=== PATIENT | female | born 1980 | race Caucasian/White ===

== ENCOUNTER 2018-01-20 12:57 | Emergency (ER) | payer MEDICAID, OTHER ==
[~2018-01-20] VITALS: Ht 172.7 cm; Wt 130.0 kg
[~2018-01-20 12:57] MED LIST: HYDR-4383 PO; HYDR12.5 PO; HYDR25TA4 PO
[2018-01-20 13:08] VITALS: BP 129/84
[2018-01-20] MEDS ORDERED: HYDROchlorothiazide 25mg tablet PO ONE (13:55)
[2018-01-20] MEDS ORDERED: HYDR25TA4 PO (13:55)
== END 2018-01-20 14:26 | disposition home or self-care (01) ==
LOC: ER 12:58
DX: I10 Essential (primary) hypertension (principal); M79.7 Fibromyalgia; Z98.51 Tubal ligation status; Z76.0 Encounter for issue of repeat prescription
CPT/HCPCS: 99283

== ENCOUNTER 2018-03-22 11:42 | Emergency (ER) | payer MEDICAID, OTHER ==
[~2018-03-22] VITALS: Ht 175.3 cm; Wt 125.0 kg
[2018-03-22 11:59] VITALS: BP 127/82
[2018-03-22] MEDS ORDERED: HYDR25TA4 PO (12:15)
== END 2018-03-22 13:01 | disposition home or self-care (01) ==
LOC: ER 11:42
DX: I10 Essential (primary) hypertension (principal); R60.0 Localized edema; F17.200 Nicotine dependence, unspecified, uncomplicated; Z76.0 Encounter for issue of repeat prescription; Z79.899 Other long term (current) drug therapy; Z98.51 Tubal ligation status
CPT/HCPCS: 99283

== ENCOUNTER 2018-07-26 23:41 | Emergency (ER) | payer MEDICAID ==
[~2018-07-26] VITALS: Ht 172.7 cm; Wt 98.2 kg
[2018-07-26 23:50] VITALS: BP 142/98
[2018-07-27] MEDS ORDERED: HYDR25TA4 PO (00:46)
[2018-07-27] MEDS ORDERED: HYDROchlorothiazide 25mg tablet PO ONE (01:05)
== END 2018-07-27 01:04 | disposition home or self-care (01) ==
LOC: ER 23:43
DX: I10 Essential (primary) hypertension (principal); Z98.51 Tubal ligation status; Z79.899 Other long term (current) drug therapy; Z76.0 Encounter for issue of repeat prescription
CPT/HCPCS: 99283

== ENCOUNTER 2018-09-06 17:55 | Emergency (ER) | payer MEDICAID ==
[~2018-09-06] VITALS: Ht 172.7 cm; Wt 106.8 kg
--- NOTE | 2018-09-06 19:29 | NUR ---
PATIENT HERE FOR REFILL ON HER HCTZ 25 MG WHICH WAS LAST TAKENA WEEK AGO. PATIENT IS ON WAITING LIST FOR [facility] FOR "NEW DOCTOR". PATIENT STATES THAT SHE LAST HAD A REGULAR MD IN [place] 2 YEARS AGO. PATIENT STATES THAT AN ADDRESS CHANGE CAUSED HER TO LOOSE HER MEDICAL FOR A PERIOD OF TIME. PATIENT HAS BEEN COMING TO [facility] ER FOR PRESCRIPTION FOR HCTZ SINCE 2016
--- NOTE | 2018-09-06 19:47 | NUR ---
PATIENT NOW REQUESTING TAXI TO RETURN HER TO HER WORKSITE AT [employer] AT THE CORNER OF [address]
[2018-09-06] MEDS ORDERED: HYDR25TA4 PO (20:45)
[2018-09-06] MEDS ORDERED: HYDROchlorothiazide 25mg tablet PO ONE (20:50)
[2018-09-06 20:51] VITALS: BP 152/102
--- NOTE | 2018-09-06 20:54 | NUR ---
PATIENT PROVIDED LIST OF DOCTORS IN THE ARE[facility] INFORMATION
--- NOTE | 2018-09-06 21:13 | NUR ---
SEE RECENT VITALS FOR DEPART
== END 2018-09-06 21:14 | disposition home or self-care (01) ==
LOC: ER 17:56
DX: R60.0 Localized edema (principal); Z76.0 Encounter for issue of repeat prescription; I10 Essential (primary) hypertension; Z98.51 Tubal ligation status; Z79.899 Other long term (current) drug therapy
CPT/HCPCS: 99283

== ENCOUNTER 2019-02-01 20:03 | Emergency (ER) | payer MEDICAID ==
[~2019-02-01] VITALS: Ht 175.3 cm; Wt 123.0 kg
--- NOTE | 2019-02-01 21:38 | NUR ---
BACK FROM CT SCAN
[2019-02-01] MEDS ORDERED: PRED20TA PO (21:52)
[2019-02-01 22:33] VITALS: BP 136/78
== END 2019-02-01 22:15 | disposition home or self-care (01) ==
LOC: ER 20:03
DX: S83.8X1A Sprain of other specified parts of right knee, initial encounter (principal); L25.9 Unspecified contact dermatitis, unspecified cause; I10 Essential (primary) hypertension; Z98.51 Tubal ligation status; Z79.899 Other long term (current) drug therapy; W18.40XA Slipping, tripping and stumbling without falling, unspecified, initial encounter; Y93.89 Activity, other specified; Y92.89 Other specified places as the place of occurrence of the external cause; Y99.8 Other external cause status
CPT/HCPCS: 73564; 99283

== ENCOUNTER 2019-11-15 23:10 | Emergency (ER) | payer MEDICAID, OTHER ==
[~2019-11-15] VITALS: Ht 172.7 cm; Wt 113.6 kg
[2019-11-15 23:16] VITALS: BP 140/87
[2019-11-15] MEDS ORDERED: HYDR50TA3 PO (23:41)
== END 2019-11-15 23:48 | disposition home or self-care (01) ==
LOC: ER 23:11
DX: I10 Essential (primary) hypertension (principal); Z76.0 Encounter for issue of repeat prescription; Z98.51 Tubal ligation status; Z79.899 Other long term (current) drug therapy
CPT/HCPCS: 99281

== ENCOUNTER 2019-12-07 15:03 | Emergency (ER) | payer MEDICAID, OTHER ==
[~2019-12-07] VITALS: Ht 175.3 cm; Wt 113.6 kg
[~2019-12-07 15:03] MED LIST changes: +HYDR50TA3 PO
[2019-12-07 16:40] VITALS: BP 145/95
== END 2019-12-07 16:47 | disposition home or self-care (01) ==
LOC: ER 15:04
DX: M25.531 Pain in right wrist (principal); M79.672 Pain in left foot; I10 Essential (primary) hypertension; Z98.51 Tubal ligation status; Z79.899 Other long term (current) drug therapy; W19.XXXA Unspecified fall, initial encounter; Y93.89 Activity, other specified; Y92.89 Other specified places as the place of occurrence of the external cause; Y99.8 Other external cause status
CPT/HCPCS: 29125; 29515; 73110; 73630; 99284

== ENCOUNTER 2020-03-30 23:38 | Emergency (ER) | payer MEDICAID ==
[~2020-03-30] VITALS: Ht 175.3 cm; Wt 111.4 kg
[2020-03-30 23:53] VITALS: BP 139/97
== END 2020-03-31 01:59 | disposition left against medical advice (07) ==
LOC: ER 23:38
DX: M25.572 Pain in left ankle and joints of left foot (principal); Z53.21 Procedure and treatment not carried out due to patient leaving prior to being seen by health care provider

== ENCOUNTER 2020-06-15 22:35 | Emergency (ER) | payer MEDICAID, OTHER ==
[~2020-06-15] VITALS: Ht 175.3 cm; Wt 113.6 kg
[~2020-06-15 22:35] MED LIST changes: -HYDR50TA3 PO; +HYDR50TA4 PO
--- NOTE | 2020-06-16 00:12 | NUR ---
Patient presents to ED for leg swelling and prescription refill of HCTZ. Patient reports being out of medication for a week. No other complaints at this time
[2020-06-16] MEDS ORDERED: HYDROchlorothiazide 25mg tablet PO ONE (00:35)
[2020-06-16 00:49] VITALS: BP 155/97
[2020-06-16] MEDS ORDERED: HYDR25TA4 PO (01:34)
== END 2020-06-16 01:50 | disposition home or self-care (01) ==
LOC: ER 22:36
DX: M79.89 Other specified soft tissue disorders (principal); I10 Essential (primary) hypertension; Z76.0 Encounter for issue of repeat prescription; Z98.51 Tubal ligation status; Z79.899 Other long term (current) drug therapy
CPT/HCPCS: 99283

== ENCOUNTER 2020-09-25 00:46 | Emergency (ER) | payer OTHER ==
[~2020-09-25] VITALS: Ht 172.7 cm; Wt 106.4 kg
[2020-09-25 00:53] VITALS: BP 140/91
[2020-09-25] MEDS ORDERED: METH-797 PO (04:15)
== END 2020-09-25 05:13 | disposition home or self-care (01) ==
LOC: ER 00:47
DX: S16.1XXA Strain of muscle, fascia and tendon at neck level, initial encounter (principal); S80.212A Abrasion, left knee, initial encounter; I10 Essential (primary) hypertension; M79.7 Fibromyalgia; F17.200 Nicotine dependence, unspecified, uncomplicated; Z98.51 Tubal ligation status; Z79.899 Other long term (current) drug therapy; V87.7XXA Person injured in collision between other specified motor vehicles (traffic), initial encounter; Y93.89 Activity, other specified; Y92.89 Other specified places as the place of occurrence of the external cause; Y99.8 Other external cause status
CPT/HCPCS: 99283

== ENCOUNTER 2021-03-19 01:25 | Emergency (ER) | payer MEDICAID, OTHER ==
[~2021-03-19] VITALS: Ht 175.3 cm; Wt 111.4 kg
[~2021-03-19 01:25] MED LIST changes: +METH-797 PO
[2021-03-19 02:06] VITALS: BP 131/79
[2021-03-19] MEDS ORDERED: HYDR50TA4 PO (02:08)
[2021-03-19] MEDS ORDERED: HYDROchlorothiazide 25mg tablet PO ONE (02:10)
== END 2021-03-19 02:16 | disposition home or self-care (01) ==
LOC: ER 01:25
DX: I10 Essential (primary) hypertension (principal); Z76.0 Encounter for issue of repeat prescription
CPT/HCPCS: 99283

== ENCOUNTER 2021-05-15 04:54 | Emergency (ER) | payer MEDICAID ==
[~2021-05-15] VITALS: Ht 175.3 cm; Wt 106.8 kg
[2021-05-15] MEDS ORDERED: HYDR50TA4 PO (05:56)
[2021-05-15 06:43] VITALS: BP 133/82
== END 2021-05-15 06:47 | disposition home or self-care (01) ==
LOC: ER 04:55
DX: B34.9 Viral infection, unspecified (principal); Z20.822 Contact with and (suspected) exposure to COVID-19; I10 Essential (primary) hypertension; Z98.51 Tubal ligation status; Z79.899 Other long term (current) drug therapy
CPT/HCPCS: 87635; 99283; C9803

== ENCOUNTER 2021-07-23 16:42 | Emergency (ER) | payer MEDICAID ==
[~2021-07-23] VITALS: Ht 175.3 cm; Wt 144.0 kg
[2021-07-23 17:06] VITALS: BP 139/90
[2021-07-23] MEDS ORDERED: oxyCODONE IR 5mg (immed. release) tablet PO ONE (17:50)
[2021-07-23] MEDS ORDERED: amox tr/potassium clavulanate 875/125mg TAB PO ONE (17:55)
[2021-07-23] MEDS ORDERED: AMOX-117 PO (17:56)
[2021-07-23] MEDS ORDERED: OXYC-658 PO (17:56)
[2021-07-23] MEDS ORDERED: HYDR50TA4 PO (18:22)
== END 2021-07-23 18:25 | disposition home or self-care (01) ==
LOC: ER 16:43
DX: K08.89 Other specified disorders of teeth and supporting structures (principal); I10 Essential (primary) hypertension; Z98.51 Tubal ligation status
CPT/HCPCS: 99283

== ENCOUNTER 2021-07-27 20:13 | Emergency (ER) | payer MEDICAID ==
[~2021-07-27] VITALS: Ht 175.3 cm; Wt 107.0 kg
[~2021-07-27 20:13] MED LIST changes: +AMOX-117 PO; +OXYC-658 PO
[2021-07-27 20:22] VITALS: BP 137/97
[2021-07-27] MEDS ORDERED: HYDROcodone/acetaminophen 5mg/325mg tablet PO ONE (21:40)
[2021-07-27] MEDS ORDERED: HYDR-3965 PO (22:08)
== END 2021-07-27 22:19 | disposition home or self-care (01) ==
LOC: ER 20:13
DX: K08.89 Other specified disorders of teeth and supporting structures (principal); I11.0 Hypertensive heart disease with heart failure; Z98.51 Tubal ligation status; Z79.899 Other long term (current) drug therapy
CPT/HCPCS: 99283

== ENCOUNTER 2021-08-13 22:22 | Emergency (ER) | payer MEDICAID ==
[~2021-08-13] VITALS: Ht 175.3 cm; Wt 111.4 kg
[~2021-08-13 22:22] MED LIST changes: -AMOX-117 PO; +HYDR-3965 PO
[2021-08-14] MEDS ORDERED: triamcinolone acetonide 40mg/ml inj IM ONE (01:35)
[2021-08-14] MEDS ORDERED: diphenhydrAMINE 25mg capsule PO ONE (01:35)
[2021-08-14 01:52] VITALS: BP 139/102
== END 2021-08-14 01:55 | disposition home or self-care (01) ==
LOC: ER 22:22
DX: L23.7 Allergic contact dermatitis due to plants, except food (principal); I10 Essential (primary) hypertension; F17.200 Nicotine dependence, unspecified, uncomplicated; Z98.51 Tubal ligation status; Z79.899 Other long term (current) drug therapy
CPT/HCPCS: 96372; 99283; J3301; Q0163

== ENCOUNTER 2021-09-22 11:38 | Inpatient (IN) | payer MEDICAID ==
[~2021-09-22] VITALS: Ht 175.3 cm; Wt 113.6 kg
[~2021-09-22 11:38] MED LIST changes: -HYDR-3965 PO; -OXYC-658 PO
[2021-09-22] MEDS ORDERED: metoclopramide 5 mg/ml inj IV ONE ×2 (12:00)
[2021-09-22] MEDS ORDERED: normal saline 1000ML IV soln IVB ONE ×2 (12:00→15:30)
[2021-09-22] MEDS ORDERED: morphine 4 MG/ML inj SYRINge IV ONE (12:00)
[2021-09-22] MEDS: normal saline 1000ml 1,000 ML IV ONE ×2 (12:10→12:31)
[2021-09-22 12:41] LABS: BASOPHILS % (AUTO) 0.2 % (0-1); EOSINOPHILS # (AUTO) 0.1 X10'3 (0-0.9); EOSINOPHILS % (AUTO) 0.5 % (0-6); HEMATOCRIT 38.1 % (35.0-45.0); HEMOGLOBIN 12.3 g/dl (12.0-16.0); LYMPHOCYTES # (AUTO) 1.6 X10'3 (1.1-4.8); LYMPHOCYTES % (AUTO) 10.4 % (21-51); MEAN CORPUSCULAR HEMOGLOBIN 26.2 PG (27.0-31.0); MEAN CORPUSCULAR HGB CONC 32.4 g/dL (33.0-36.5); MEAN CORPUSCULAR VOLUME 80.9 FL (78-98); MEAN PLATELET VOLUME 7.9 FL (7.4-10.4); MONOCYTES # (AUTO) 1.1 X10'3 (0-0.9); MONOCYTES % (AUTO) 7.3 % (2-12); NEUTROPHILS # (AUTO) 12.4 X10'3 (1.8-7.7); NEUTROPHILS % (AUTO) 81.6 % (42-75); PLATELET COUNT 248 X10'3 (140-440); RED BLOOD COUNT 4.71 X10'6 (4.20-5.60); RED CELL DISTRIBUTION WIDTH 15.7 % (11.5-14.5); WHITE BLOOD COUNT 15.2 X10'3 (4.5-11.0)
[2021-09-22 13:00] LABS: ALANINE AMINOTRANSFERASE 22 U/L (12-78); ALBUMIN 2.5 G/DL (3.4-5.0); ALBUMIN/GLOBULIN RATIO 0.7 (1.1-1.5); ALKALINE PHOSPHATASE 94 IU/L (46-116); ANION GAP 7 (8-16); ASPARTATE AMINO TRANSFERASE 9 U/L (10-37); BILIRUBIN,TOTAL 0.3 MG/DL (0.1-1.0); BLOOD UREA NITROGEN 9 MG/DL (7-18); BUN/CREATININE RATIO 10.3 (6.6-38.0); C-REACTIVE PROTEIN 12.78 MG/DL (0.0-0.5); CALCIUM 7.8 MG/DL (8.5-10.1); CHLORIDE 102 MMOL/L (99-107); CREATININE 0.87 MG/DL (0.40-0.90); GLUCOSE 100 MG/DL (70-104); LIPASE 55 U/L (73-393); POTASSIUM 3.2 MMOL/L (3.5-5.1); SODIUM 135 MMOL/L (135-145); TOTAL CARBON DIOXIDE 26.5 MMOL/L (24-32); TOTAL PROTEIN 6.2 G/DL (6.4-8.2); eGFR 72 ML/MIN
[2021-09-22] MEDS ORDERED: fentaNYL/PF 50MCG/1 ML 2ML syringe IV ONE ×2 (15:30→19:10)
[2021-09-22] MEDS ORDERED: ondansetron/PF 4mg/2ml inj IV ONE (15:30)
[2021-09-22] MEDS ORDERED: metroNIDAZOLE-Flagyl 500mg/NS 100 ML IV STA (15:41)
[2021-09-22] MEDS ORDERED: acetaminophen 325mg tablet PO PRN ×2 (15:45)
[2021-09-22] MEDS ORDERED: HYDROcodone/acetaminophen 5mg/325mg tablet PO PRN (15:45)
[2021-09-22] MEDS ORDERED: ondansetron/PF 4mg/2ml inj IV PRN (15:45)
[2021-09-22] MEDS ORDERED: HYDROcodone/acetaminophen 10/325mg tab PO PRN (15:45)
[2021-09-22] MEDS ORDERED: magnesium 4gm in 100ml NS 100 ML IV PRN (15:45)
[2021-09-22] MEDS ORDERED: potassium CL 10mEq/100ml bag 100 ML IV PRN (15:45)
[2021-09-22] MEDS ORDERED: normal saline 1000ml 1,000 ML IV SCH (15:45)
[2021-09-22] MEDS ORDERED: piperacillin/tazo 3.375gm/50ml 50 ML IV ONE (15:45)
[2021-09-22] MEDS ORDERED: morphine 2 MG/ML inj. syringe IV PRN ×2 (15:45)
[2021-09-22] MEDS ORDERED: magnesium Cl slow-release 64mg tablet PO PRN (15:45)
[2021-09-22] MEDS ORDERED: POTASSIUM BICARB 20meq eff tab 20 MEQ TABLET.EFF PO PRN ×2 (15:45)
[2021-09-22] MEDS ORDERED: magnesium 2GM in 50ml NS 50 ML IV PRN (15:45)
[2021-09-22 15:46] LABS: HCG SERUM QL NEGATIVE
[2021-09-22] MEDS ORDERED: HYDR50TA4 PO (16:00)
[2021-09-22] MEDS ORDERED: MELO10CA3 PO (16:00)
[2021-09-22] MEDS ORDERED: ciprofloxacin lact 400MG/200ML 200 ML IV SCH (16:00)
[2021-09-22] MEDS ORDERED: metroNIDAZOLE-Flagyl 500mg/NS 100 ML IV SCH (16:00)
[2021-09-22] MEDS ORDERED: HYDROmorphone 1 mg/ml syringe IV PRN (17:45)
[2021-09-22] MEDS ORDERED: HYDROmorphone 2mg tablet PO PRN (17:45)
[2021-09-22] MEDS ORDERED: CIPR-202 PO (19:04)
[2021-09-22] MEDS ORDERED: METR-159 PO (19:04)
[2021-09-22] MEDS ORDERED: ONDA4TAB12 PO (19:04)
--- NOTE | 2021-09-22 19:41 | NUR ---
Patient is requesting to leave AMA. She states she does not have care for her small child. Dr. Lane notified. Dr. Wagner notified and advised patient of risks and benefits of staying vs. leaving AMA. Pt signed AMA form and given discharge instructions and rx for PO antibiotics. Pt instructed to return to ER if needed.
[2021-09-22 19:48] VITALS: BP 118/65
[2021-09-22] MEDS ORDERED: K and/or MAG REPLACEMENT MC SCH (20:00)
[2021-09-22] MEDS ORDERED: heparin, porcine 5000 units/ml vial SQ SCH (20:00)
[2021-09-22] MEDS ORDERED: temazepam 15mg capsule PO PRN (21:00)
== END 2021-09-22 19:00 | disposition left against medical advice (07) | DRG 720 ==
LOC: ER 11:38 → ED HOLD 15:46
PROVIDERS: ADMIT Internal Medicine; ATTEND Internal Medicine
DX: A41.9 Sepsis, unspecified organism (principal); E87.6 Hypokalemia; Z20.822 Contact with and (suspected) exposure to COVID-19; F17.210 Nicotine dependence, cigarettes, uncomplicated; G89.29 Other chronic pain; Z53.29 Procedure and treatment not carried out because of patient's decision for other reasons; I10 Essential (primary) hypertension; K52.9 Noninfective gastroenteritis and colitis, unspecified; M54.50 Low back pain, unspecified; M79.7 Fibromyalgia; Z98.51 Tubal ligation status; Z28.310 Unvaccinated for COVID-19
CPT/HCPCS: 36415; 74176; 80053; 83605; 83690; 84145; 84703; 85025; 86140; 87040; 87635; 96361; 96374; 96375; 99285; G0378; J0744; J2270; J2405; J2765; J3010; J3490; J7030

== ENCOUNTER 2021-09-23 18:37 | Inpatient (IN) | payer MEDICAID ==
[~2021-09-23] VITALS: Ht 172.7 cm; Wt 118.2 kg
[~2021-09-23 18:37] MED LIST changes: +CIPR-202 PO; -HYDR-4383 PO; -HYDR12.5 PO; -HYDR25TA4 PO; +MELO10CA3 PO; -METH-797 PO; +METR-159 PO; +ONDA4TAB12 PO
[2021-09-23] MEDS ORDERED: normal saline 1000ML IV soln IVB ONE (18:40)
[2021-09-23] MEDS ORDERED: ondansetron/PF 4mg/2ml inj IV ONE (18:40)
[2021-09-23] MEDS ORDERED: fentaNYL/PF 50MCG/1 ML 2ML syringe IV ONE (18:40)
[2021-09-23] MEDS ORDERED: morphine 10mg/ml inj. IV ONE (19:00)
[2021-09-23 19:15] LABS: BASOPHILS % (AUTO) 0.2 % (0-1); EOSINOPHILS # (AUTO) 0.1 X10'3 (0-0.9); EOSINOPHILS % (AUTO) 0.6 % (0-6); HEMATOCRIT 37.3 % (35.0-45.0); LYMPHOCYTES # (AUTO) 1.5 X10'3 (1.1-4.8); LYMPHOCYTES % (AUTO) 11.5 % (21-51); MEAN CORPUSCULAR HEMOGLOBIN 25.8 PG (27.0-31.0); MEAN CORPUSCULAR HGB CONC 32.2 g/dL (33.0-36.5); MEAN CORPUSCULAR VOLUME 80.2 FL (78-98); MONOCYTES # (AUTO) 0.8 X10'3 (0-0.9); MONOCYTES % (AUTO) 6.4 % (2-12); NEUTROPHILS # (AUTO) 10.7 X10'3 (1.8-7.7); NEUTROPHILS % (AUTO) 81.3 % (42-75); PLATELET COUNT 231 X10'3 (140-440); RED BLOOD COUNT 4.65 X10'6 (4.20-5.60); RED CELL DISTRIBUTION WIDTH 15.7 % (11.5-14.5); WHITE BLOOD COUNT 13.1 X10'3 (4.5-11.0)
[2021-09-23 19:20] LABS: ALANINE AMINOTRANSFERASE 20 U/L (12-78); ALBUMIN 2.5 G/DL (3.4-5.0); ALBUMIN/GLOBULIN RATIO 0.6 (1.1-1.5); ALKALINE PHOSPHATASE 94 IU/L (46-116); ANION GAP 4 (8-16); ASPARTATE AMINO TRANSFERASE 13 U/L (10-37); BILIRUBIN,TOTAL 0.3 MG/DL (0.1-1.0); BLOOD UREA NITROGEN 5 MG/DL (7-18); BUN/CREATININE RATIO 5.1 (6.6-38.0); CALCIUM 8.1 MG/DL (8.5-10.1); CHLORIDE 103 MMOL/L (99-107); CREATININE 0.98 MG/DL (0.40-0.90); GLUCOSE 117 MG/DL (70-104); LIPASE < 50 U/L (73-393); SODIUM 134 MMOL/L (135-145); TOTAL PROTEIN 6.4 G/DL (6.4-8.2); eGFR 63 ML/MIN
--- NOTE | 2021-09-23 19:24 | NUR ---
This RN noticed O2 saturation dipping to 88%. Started pt on 2L NC. O2 saturation is now 94%
[2021-09-23 20:09] LABS: URINE HCG NEGATIVE (NEG)
[2021-09-23 20:21] LABS: CLARITY,URINE SLIGHTLY CLOUDY (Clear); GLUCOSE, URINE NEGATIVE (Neg); KETONES,URINE NEGATIVE (Neg); LEUKOCYTE ESTERASE ,URINE NEGATIVE (Neg); OCCULT BLOOD,URINE MODERATE (Neg); PROTEIN,URINE TRACE mg/dl (Neg); UROBILINOGEN,URINE 0.2 E.U/dL (0.2-1.0)
[2021-09-23 20:23] LABS: UA COLLECTION TYPE CLN CATCH MIDSTREAM
[2021-09-23 20:24] LABS: COLOR,URINE AMBER (Yellow)
[2021-09-23 20:27] LABS: NITRITES, URINE NEGATIVE (Neg)
[2021-09-23 20:32] LABS: BACTERIA,URINE 2+ /HPF (Neg); SQUAMOUS EPITHELIAL CELL,UR MANY /LPF (FEW); WBC,URINE 0-4 /HPF (0-4)
[2021-09-23 20:35] LABS: MUCUS STRANDS NONE SEEN /LPF (Neg)
[2021-09-23] MEDS ORDERED: ciprofloxacin lact 400MG/200ML 200 ML IV STA (21:36)
[2021-09-23] MEDS ORDERED: metroNIDAZOLE-Flagyl 500mg/NS 100 ML IV STA (21:36)
[2021-09-23] MEDS ORDERED: potassium Cl 10 mEq/100mL bag IV ONE (21:40)
[2021-09-23] MEDS ORDERED: morphine 2 MG/ML inj. syringe IV PRN (21:45)
[2021-09-23] MEDS ORDERED: potassium CL 10mEq/100ml bag 100 ML IV PRN (21:45)
[2021-09-23] MEDS ORDERED: mag hydrox/Alum hydrox/simeth 30ml oral suspension PO PRN (21:45)
[2021-09-23] MEDS ORDERED: magnesium Cl slow-release 64mg tablet PO PRN (21:45)
[2021-09-23] MEDS ORDERED: POTASSIUM BICARB 20meq eff tab 20 MEQ TABLET.EFF PO PRN (21:45)
[2021-09-23] MEDS ORDERED: magnesium hydroxide 30ml (MOM) UD suspension PO PRN (21:45)
[2021-09-23] MEDS ORDERED: magnesium 4gm in 100ml NS 100 ML IV PRN (21:45)
[2021-09-23] MEDS ORDERED: ondansetron/PF 4mg/2ml inj IV PRN (21:45)
[2021-09-23] MEDS ORDERED: acetaminophen 325mg tablet PO PRN (21:45)
[2021-09-23] MEDS ORDERED: magnesium 2GM in 50ml NS 50 ML IV PRN (21:45)
[2021-09-23 22:10] LABS: MAGNESIUM 1.7 MG/DL (1.5-2.4)
--- NOTE | 2021-09-24 00:20 | NUR ---
Pt arrived to unit. Ambulated to restroom, stool sample received. Call light in reach, bed low. Addendum: 09/24/21 at 0032 by Mariajose Ortiz RN Amended: Links added.
[2021-09-24 01:00] VITALS: BP 118/62
--- NOTE | 2021-09-24 01:16 | NUR ---
PATIENT PAINFUL, RC'D ORDER TO GIVE 4MG MORPHINE IVP NOW FOR ABDOMINAL CRAMPING.
[2021-09-24] MEDS: potassium Cl 20mEq in NS 1,000 ML IV SCH ×3 (01:28→17:45)
[2021-09-24] MEDS: morphine 2 MG/ML inj. syringe IV PRN ×2 (01:29→07:38)
--- NOTE | 2021-09-24 02:15 | NUR ---
RESTING COMFORTABLY AT THIS TIME. NO ABDOMINAL CRAMPING AFTER RC'G EARLY DOSE OF MORPHINE PER DR. WOOTEN. CALL RX REGARDING 2400 DOSE OF FLAGYL DUE, PATIENT RC'D A DOSE AT 2145 IN ED. WAS INSTRUCTED TO NOT GIVE THIS 2400 DOSE AND WILL RESUME AT 0800 SCHEDULED.
--- NOTE | 2021-09-24 05:54 | NUR ---
Problems reprioritized. Patient report given, questions answered & plan of care reviewed with STEPHANIE RABAGO.
[2021-09-24 06:00] VITALS: BP 116/72
[2021-09-24 06:14] LABS: BASOPHILS % (AUTO) 0.3 % (0-1); EOSINOPHILS % (AUTO) 0.3 % (0-6); HEMATOCRIT 33.9 % (35.0-45.0); HEMOGLOBIN 11.5 g/dl (12.0-16.0); LYMPHOCYTES # (AUTO) 1.5 X10'3 (1.1-4.8); LYMPHOCYTES % (AUTO) 13.5 % (21-51); MEAN CORPUSCULAR HEMOGLOBIN 27.3 PG (27.0-31.0); MEAN CORPUSCULAR HGB CONC 33.8 g/dL (33.0-36.5); MEAN CORPUSCULAR VOLUME 80.8 FL (78-98); MEAN PLATELET VOLUME 8.2 FL (7.4-10.4); MONOCYTES # (AUTO) 0.9 X10'3 (0-0.9); MONOCYTES % (AUTO) 7.9 % (2-12); NEUTROPHILS # (AUTO) 8.5 X10'3 (1.8-7.7); PLATELET COUNT 189 X10'3 (140-440); RED CELL DISTRIBUTION WIDTH 15.6 % (11.5-14.5); WHITE BLOOD COUNT 10.9 X10'3 (4.5-11.0)
--- NOTE | 2021-09-24 06:25 | NUR ---
Patient in room ORTHO 4008. I have received report from MEKHI RABAGO and had the opportunity to ask questions and assume patient care.
--- NOTE | 2021-09-24 06:37 | NUR ---
Problems reprioritized. Patient report given, questions answered & plan of care reviewed with STEPHANIE.
[2021-09-24 06:39] LABS: ALANINE AMINOTRANSFERASE 16 U/L (12-78); ALBUMIN 2.2 G/DL (3.4-5.0); ALBUMIN/GLOBULIN RATIO 0.6 (1.1-1.5); ALKALINE PHOSPHATASE 86 IU/L (46-116); ANION GAP 8 (8-16); ASPARTATE AMINO TRANSFERASE 14 U/L (10-37); BILIRUBIN,TOTAL 0.3 MG/DL (0.1-1.0); BLOOD UREA NITROGEN 4 MG/DL (7-18); BUN/CREATININE RATIO 4.5 (6.6-38.0); CALCIUM 7.8 MG/DL (8.5-10.1); CHLORIDE 105 MMOL/L (99-107); CREATININE 0.88 MG/DL (0.40-0.90); GLUCOSE 127 MG/DL (70-104); MAGNESIUM 1.6 MG/DL (1.5-2.4); POTASSIUM 3.2 MMOL/L (3.5-5.1); SODIUM 137 MMOL/L (135-145); TOTAL CARBON DIOXIDE 24.3 MMOL/L (24-32); TOTAL PROTEIN 5.8 G/DL (6.4-8.2); eGFR 71 ML/MIN
[2021-09-24] MEDS: POTASSIUM BICARB 20meq eff tab 20 MEQ TABLET.EFF PO PRN ×2 (07:37→11:14)
[2021-09-24] MEDS: metroNIDAZOLE-Flagyl 500mg/NS 100 ML IV SCH ×2 (07:37)
[2021-09-24] MEDS ORDERED: K and/or MAG REPLACEMENT MC SCH (08:00)
[2021-09-24] MEDS ORDERED: docusate sod 100mg capsule PO SCH (08:00)
[2021-09-24] MEDS ORDERED: ciprofloxacin lact 400MG/200ML 200 ML IV SCH (08:00)
--- NOTE | 2021-09-24 09:22 | NUR ---
med hung late due to short staff and pt load
[2021-09-24] MEDS: HYDROcodone/acetaminophen 5mg/325mg tablet PO PRN ×2 (11:08→17:13)
[2021-09-24 12:06] LABS: OCCULT BLOOD STOOL POSITIVE (Neg)
[2021-09-24 12:22] LABS: C DIFF SPECIMEN=DIARRHEA? ACCEPTABLE
[2021-09-24 12:27] LABS: C DIFFICILE TOXINS A&B NEGATIVE (Neg)
--- NOTE | 2021-09-24 15:36 | NUR ---
Page Sent PAGER ID: [phone] MESSAGE: [phone] angelo, pt iv got pulled out. do you want another IV or is pt still getting DC. ceci [id number]
--- NOTE | 2021-09-24 15:38 | NUR ---
Page Sent PAGER ID: [phone] MESSAGE: [phone] Hortencia, pt K is 3.1 after recheck. ceci [id number]
[2021-09-24] MEDS ORDERED: ciprofloxacin 250mg tablet PO SCH ×3 (16:00→20:00)
[2021-09-24] MEDS ORDERED: metroNIDAZOLE 500mg tablet PO SCH (16:00)
--- NOTE | 2021-09-24 16:05 | NUR ---
Page Sent PAGER ID: [phone] MESSAGE: [phone] [email or web address], can I put in DC order for IV and fluids?. I need one if she wont have an IV in. thanks
--- NOTE | 2021-09-24 16:08 | NUR ---
per dr yusuf, pt will be discharged on PO on antibiotics and K. will discharge pt before shift change.
[2021-09-24] MEDS ORDERED: POTA-197 PO (16:11)
[2021-09-24] MEDS ORDERED: LISI10TA27 PO (16:11)
[2021-09-24] MEDS ORDERED: AMLO5TAB16 PO (16:11)
--- NOTE | 2021-09-24 17:02 | NUR ---
can give flagyl because it is PO now, was waiting on pharmacy for the change.
[2021-09-24] MEDS ORDERED: METR-159 PO (17:16)
--- NOTE | 2021-09-24 17:18 | NUR ---
Page Sent promotional table spacer PAGER ID: [phone] MESSAGE: [phone] sandeep please call me about this pt, she does not have a place to go to isolate if she gets discharged. ceci [id number]
--- NOTE | 2021-09-24 17:25 | NUR ---
Page Sent PAGER ID: [phone] MESSAGE: [phone] angelo pt states she wants to go home and has made arrangements to be in isolation at home.is it ok to DC today or do you want to wait still for case management tomorrow? ceci
--- NOTE | 2021-09-24 17:30 | NUR ---
per dr yusuf pt can isolate at home and pt will be DC tonight.
--- NOTE | 2021-09-24 17:47 | NUR ---
Page Sent PAGER ID: [phone] MESSAGE: [phone] kerri stephens wanted to know if they could have pain meds. pain has uznilda 6-10/22 and has been getting [place] throughout the day. ceci [phone]
--- NOTE | 2021-09-24 17:49 | NUR ---
pt refuse last K she will take it when she gets home, she has k ordered for at home.
--- NOTE | 2021-09-24 18:38 | NUR ---
Problems reprioritized. Patient report given, questions answered & plan of care reviewed with MEKHI RABAGO.
--- NOTE | 2021-09-24 18:45 | NUR ---
pt was stable for discharge, all discharge info was given to pt and signed, iv was dc, a nurse walked her down to the lobby, she left in a private vehicle, and took all her belongings with her.
== END 2021-09-24 18:30 | disposition home or self-care (01) | DRG 720 ==
LOC: ER 18:37 → ED HOLD 21:47 → ORTHO 4S 09-24 00:20
PROVIDERS: ADMIT Internal Medicine; ATTEND Internal Medicine
DX: A41.9 Sepsis, unspecified organism (principal); E87.6 Hypokalemia; G89.29 Other chronic pain; I10 Essential (primary) hypertension; K52.9 Noninfective gastroenteritis and colitis, unspecified; M17.0 Bilateral primary osteoarthritis of knee; M79.7 Fibromyalgia; M54.9 Dorsalgia, unspecified; Z98.51 Tubal ligation status; Z79.899 Other long term (current) drug therapy
CPT/HCPCS: 36415; 80053; 81001; 81025; 82272; 83690; 83735; 84132; 85025; 87045; 87046; 87081; 87324; 87449; 89055; 96374; 96375; 99285; A4615; A6258; G0378; J0744; J2270; J2274; J2405; J3480; J3490; J7030

== ENCOUNTER 2021-10-19 07:02 | Emergency (ER) | payer MEDICAID ==
[~2021-10-19] VITALS: Ht 172.7 cm; Wt 143.2 kg
[~2021-10-19 07:02] MED LIST changes: +AMLO5TAB16 PO; -CIPR-202 PO; -HYDR50TA4 PO; +LISI10TA27 PO; -MELO10CA3 PO; -METR-159 PO; +POTA-197 PO
[2021-10-19 07:26] VITALS: BP 168/94
[2021-10-19] MEDS ORDERED: HYDROcodone/acetaminophen 5mg/325mg tablet PO ONE (10:30)
[2021-10-19] MEDS ORDERED: amox tr/potassium clavulanate 875/125mg TAB PO ONE (10:30)
[2021-10-19] MEDS ORDERED: AMOX-117 PO (10:48)
[2021-10-19] MEDS ORDERED: [UNRECOGNIZED DRUG - CODE] PO (10:48)
== END 2021-10-19 10:58 | disposition home or self-care (01) ==
LOC: ER 07:03
DX: K04.7 Periapical abscess without sinus (principal); I10 Essential (primary) hypertension; Z98.51 Tubal ligation status
CPT/HCPCS: 99283

== ENCOUNTER 2022-01-14 23:46 | Emergency (ER) | payer MEDICAID ==
[~2022-01-14] VITALS: Ht 167.6 cm; Wt 147.2 kg
[~2022-01-14 23:46] MED LIST changes: +[UNRECOGNIZED DRUG - CODE] PO
[2022-01-15] MEDS ORDERED: HYDR50TA4 PO (00:34)
[2022-01-15] MEDS ORDERED: HYDROchlorothiazide 25mg tablet PO ONE (00:35)
[2022-01-15 00:59] VITALS: BP 148/80
== END 2022-01-15 01:01 | disposition home or self-care (01) ==
LOC: ER 23:46
DX: Z76.0 Encounter for issue of repeat prescription (principal); I10 Essential (primary) hypertension; Z98.51 Tubal ligation status
CPT/HCPCS: 99283

== ENCOUNTER 2022-04-22 07:36 | Emergency (ER) | payer MEDICAID ==
[~2022-04-22] VITALS: Ht 175.3 cm; Wt 136.0 kg
[~2022-04-22 07:36] MED LIST changes: +HYDR50TA4 PO
[2022-04-22 07:40] VITALS: BP 169/99
[2022-04-22] MEDS ORDERED: ketorolac trometh. 30mg/ml inj. IM ONE (10:05)
[2022-04-22] MEDS ORDERED: amox tr/potassium clavulanate 875/125mg TAB PO ONE (10:05)
[2022-04-22] MEDS ORDERED: HYDROcodone/acetaminophen 10/325mg tab PO ONE (10:05)
[2022-04-22] MEDS ORDERED: HYDR-3972 PO (10:24)
[2022-04-22] MEDS ORDERED: IBUP-1986 PO (10:24)
[2022-04-22] MEDS ORDERED: FLUC150T PO (10:24)
[2022-04-22] MEDS ORDERED: AMOX-117 PO (10:24)
== END 2022-04-22 10:26 | disposition home or self-care (01) ==
LOC: ER 07:37
DX: K08.89 Other specified disorders of teeth and supporting structures (principal); I10 Essential (primary) hypertension; Z79.899 Other long term (current) drug therapy; Z79.1 Long term (current) use of non-steroidal anti-inflammatories (NSAID)
CPT/HCPCS: 96372; 99283; J1885

== ENCOUNTER 2022-06-16 20:18 | Emergency (ER) | payer MEDICAID ==
[~2022-06-16] VITALS: Ht 175.3 cm; Wt 111.4 kg
[~2022-06-16 20:18] MED LIST changes: +IBUP-1986 PO
[2022-06-16] MEDS ORDERED: acetaminophen 325mg tablet PO STA (23:05)
[2022-06-16 23:46] VITALS: BP 155/87
== END 2022-06-16 23:49 | disposition home or self-care (01) ==
LOC: ER 20:18
DX: M25.562 Pain in left knee (principal); F17.200 Nicotine dependence, unspecified, uncomplicated; I10 Essential (primary) hypertension; Z79.899 Other long term (current) drug therapy; Z79.1 Long term (current) use of non-steroidal anti-inflammatories (NSAID); Z79.2 Long term (current) use of antibiotics
CPT/HCPCS: 73564; 99283

== ENCOUNTER 2022-08-01 21:16 | Emergency (ER) | payer MEDICAID ==
[~2022-08-01] VITALS: Ht 175.3 cm; Wt 136.4 kg
[2022-08-01 22:05] VITALS: BP 125/84
[2022-08-01] MEDS ORDERED: cephalexin 500mg capsule PO ONE (23:25)
[2022-08-01] MEDS ORDERED: CEPH500C81 PO (23:29)
== END 2022-08-01 23:53 | disposition home or self-care (01) ==
LOC: ER 21:17
DX: L02.412 Cutaneous abscess of left axilla (principal); I10 Essential (primary) hypertension; Z79.899 Other long term (current) drug therapy; Z79.1 Long term (current) use of non-steroidal anti-inflammatories (NSAID); Z79.2 Long term (current) use of antibiotics
CPT/HCPCS: 99283

== ENCOUNTER 2023-08-29 22:07 | Emergency (ER) | payer MEDICAID ==
[~2023-08-29] VITALS: Ht 175.3 cm; Wt 118.2 kg
[~2023-08-29 22:07] MED LIST changes: +MELO-100 PO
[2023-08-29] MEDS ORDERED: ERYT1OIN6 EACHEYE (22:33)
[2023-08-30] MEDS: erythromycin ophthalmic ointment 1gm tube LEFTEYE ONE (00:08)
[2023-08-30 00:09] VITALS: BP 138/76; PULSE 89; RESP 17; TEMP 98.5; O2SAT 98
== END 2023-08-30 00:10 | disposition home or self-care (01) ==
LOC: ER 22:08
DX: H00.015 Hordeolum externum left lower eyelid (principal); I10 Essential (primary) hypertension; Z79.899 Other long term (current) drug therapy; Z79.1 Long term (current) use of non-steroidal anti-inflammatories (NSAID); Z98.51 Tubal ligation status
CPT/HCPCS: 99283

== ENCOUNTER 2023-11-17 08:57 | Emergency (ER) | payer MEDICAID ==
[~2023-11-17] VITALS: Ht 175.3 cm; Wt 140.0 kg
[~2023-11-17 08:57] MED LIST changes: +ONDA-243 PO; -ONDA4TAB12 PO
[2023-11-17] MEDS ORDERED: NAPR-56 PO (09:33)
[2023-11-17] MEDS ORDERED: AMOX-117 PO (09:33)
[2023-11-17] MEDS: ondansetron 4mg rapidly disintigrating tab PO ONE (09:44)
[2023-11-17] MEDS: HYDROcodone/acetaminophen 10/325mg tab PO ONE (09:45)
[2023-11-17] MEDS: ketorolac trometh. 30mg/ml inj. IM ONE (09:46)
[2023-11-17 10:35] VITALS: BP 132/90; PULSE 90; RESP 17; TEMP 97.5; O2SAT 99
== END 2023-11-17 10:45 | disposition home or self-care (01) ==
LOC: ER 08:58
DX: K04.7 Periapical abscess without sinus (principal); K08.89 Other specified disorders of teeth and supporting structures; I10 Essential (primary) hypertension; Z79.2 Long term (current) use of antibiotics; Z79.1 Long term (current) use of non-steroidal anti-inflammatories (NSAID); Z79.899 Other long term (current) drug therapy; Z98.51 Tubal ligation status
CPT/HCPCS: 96372; 99283; J1885

== ENCOUNTER 2024-04-13 01:53 | Emergency (ER) | payer MEDICAID ==
[~2024-04-13] VITALS: Ht 177.8 cm; Wt 136.8 kg
[2024-04-13 02:01] VITALS: BP 148/95; PULSE 96; RESP 16; TEMP 97.3; O2SAT 99
== END 2024-04-13 04:17 | disposition left against medical advice (07) ==
LOC: ER 02:00
DX: H57.12 Ocular pain, left eye (principal); Z53.21 Procedure and treatment not carried out due to patient leaving prior to being seen by health care provider